=== PATIENT | male | born 1955 | race Caucasian/White ===

== ENCOUNTER 2016-11-11 14:20 | Emergency (ER) | payer MEDICAID, SELFPAY ==
[2016-11-11 14:33] VITALS: BP 125/78; RESP 18; TEMP 98; O2SAT 98
[2016-11-11 14:34] VITALS: PULSE 93
[2016-11-11] MEDS ORDERED: TDAP Vaccine 0.5 mL Syr IM ONE (14:49)
[2016-11-11] MEDS ORDERED: Lidocaine 1% w Epi 1:100,000 Inj IJ STA (15:25)
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
== END 2016-11-11 16:33 | disposition home or self-care (01) ==
LOC: ED 14:20
DX: S81.012A Laceration without foreign body, left knee, initial encounter (principal); W27.8XXA Contact with other nonpowered hand tool, initial encounter; Y93.01 Activity, walking, marching and hiking; Y92.512 Supermarket, store or market as the place of occurrence of the external cause; Z23 Encounter for immunization

== ENCOUNTER 2017-04-12 11:06 | Emergency (ER) | payer MEDICAID ==
[2017-04-12 11:38] VITALS: TEMP 97.4
[2017-04-12 12:13] LABS: BASO # 0.07 K/mm3 (0.0-2.0); BASO % 0.4 % (0.0-3.0); EOS # 0.2 (0.0-0.7); EOS % 0.9 % (1.5-5.0); GRAN # 13.43 (1.4-6.5); GRAN % 75.1 % (50.0-68.0); HEMOGLOBIN 15.7 g/dL (14.0-18.0); LYMPH # 2.9 (1.2-3.4); LYMPH % 16.3 % (22.0-35.0); MEAN CELL VOLUME 88.9 fl (80.0-105.0); MEAN CORPUSCULAR HEMOGLOBIN 30.5 pg (25.0-35.0); MEAN CORPUSCULAR HGB CONC 34.4 g/dl (31.0-37.0); MEAN PLATELET VOLUME 10.2 fl (7.0-11.0); MONO # 1.3 (0.1-0.6); MONO % 7.3 % (1.0-6.0); RBC 5.14 10^6/uL (3.5-6.1); RED CELL DISTRIBUTION WIDTH 13.5 % (11.5-14.5); WHITE BLOOD COUNT 17.9 10^3/ul (4.5-11.0)
[2017-04-12 12:23] LABS: ALB/GLOB RATIO 1.3 (1.1-1.8); ALBUMIN 4.6 g/dL (3.0-4.8); ALT/SGPT 29 U/L (7-56); AST/SGOT 25 U/L (17-59); BLOOD UREA NITROGEN 29 mg/dL (7-21); CALCIUM 10.2 mg/dL (8.4-10.5); GFR AFRICAN-AMERICAN > 60; GFR NON-AFRICAN AMERICAN 56
--- NOTE | 2017-04-12 12:53 | ED PDOC ---
Arrival/HPI - General Chief Complaint: Male Genitourinary Time Seen by Provider: 04/12/17 11:23 Historian: Patient - History of Present Illness Narrative History of Present Illness (Text): 04/12/17 11:32 A 62 year old male, whose past medical history includes emphysema (caused by occupation; on 2 Liters of O2 NC) and gout, presents to the emergency department complaining of left shoulder pain for 3 days. Patient reports having difficulty elevating left arm due to pain. Patient also notes experiencing left testicular pain. Patient has had similar issue in the past when he was in [place]. While there patient was diagnosed with having a virus and was given shots. Has shortness of breath at baseline due to emphysema. Denies of any dysuria, fall, neck pain, or any other complaints at this time. Also, patient mentions drinking 25 glasses of water per day. PMD: Dr. Jonathon Roth Past Medical History - Provider Review Nursing Documentation Reviewed: Yes - Infectious Disease Hx of Infectious Diseases: None - Cardiac Hx Cardiac Disorders: Yes Hx Hypertension: Yes - Pulmonary Hx Respiratory Disorders: Yes Hx Asthma: Yes - Neurological Hx Neurological Disorder: No - HEENT Hx HEENT Disorder: Yes Other/Comment: glasses - Renal Hx Renal Disorder: No - Endocrine/Metabolic Hx Endocrine Disorders: Yes Hx Diabetes Mellitus Type 2: Yes - Hematological/Oncological Hx Blood Disorders: No - Integumentary Hx Dermatological Disorder: No - Musculoskeletal/Rheumatological Hx Musculoskeletal Disorders: Yes Hx Gout: Yes - Gastrointestinal Hx Gastrointestinal Disorders: No - Genitourinary/Gynecological Hx Genitourinary Disorders: No - Psychiatric Hx Psychophysiologic Disorder: No Hx Substance Use: No - Surgical History Other/Comment: kidney sx, as per pt - Anesthesia Hx Anesthesia: Yes Hx Anesthesia Reactions: No Family/Social History - Physician Review Nursing Documentation Reviewed: Yes Family/Social History: No Known Family HX Smoking Status: Current Some Days Smoker Hx Alcohol Use: No Hx Substance Use: No Allergies/Home Meds Allergies/Adverse Reactions: Allergies No Known Allergies Allergy (Verified 04/12/17 11:16) Home Medications: Home Meds Medication Instructions Recorded Confirmed Albuterol HFA [Ventolin HFA 90 2 puff IH PRN PRN 04/12/17 04/12/17 mcg/actuation (8 g)] Allopurinol [Zyloprim] 300 mg PO BID 04/12/17 04/12/17 Alogliptin Benzoate [Alogliptin] 1 cap PO DAILY 04/12/17 04/12/17 Ammonium Lactate 12% [Lac-Hydrin 1 appful TD DAILY 04/12/17 04/12/17 12% Lotion (225 g)] Aspirin [Adult Aspirin Regimen] 1 tab PO DAILY 04/12/17 04/12/17 Atorvastatin [Lipitor] 10 mg PO HS 04/12/17 04/12/17 Butalbital/Aspirin/Caffeine 1 tab PO DAILY 04/12/17 04/12/17 [Copwks-Biuixbh-Tfkcb 50-325-40] Doxazosin [Cardura] 4 mg PO DAILY 04/12/17 04/12/17 Dutasteride [Avodart] 1 tab PO DAILY 04/12/17 04/12/17 Fenofibrate Nanocrystallized 160 mg PO DAILY 04/12/17 04/12/17 [Fenofibrate] Lisinopril [Zestril] 10 mg PO DAILY 04/12/17 04/12/17 M-Vit,Tx,Iron,Mins/Calc/Folic 1 tab PO DAILY 04/12/17 04/12/17 [Thera-M Caplet] Omeprazole [Omeprazole] 40 mg PO DAILY 04/12/17 04/12/17 Temazepam [Restoril] 30 mg PO DAILY 04/12/17 04/12/17 Theophylline Anhydrous [Griffin-24] 1 tab PO DAILY 04/12/17 04/12/17 Tiotropium Anton Inhaler 1 puff IH DAILY 04/12/17 04/12/17 [Spiriva Inhalation Handihaler Device] traMADol [Ultram] 50 mg PO DAILY 04/12/17 04/12/17 Review of Systems - Review of Systems Constitutional: absent: Other (no fall) Eyes: Normal ENT: Normal Respiratory: SOB (baseline due to emphysema (caused by occupation)) Cardiovascular: Normal Gastrointestinal: Normal Genitourinary Male: Other (left testicular pain). absent: Dysuria Musculoskeletal: Other (left shoulder pain with difficulty elevating). absent: Neck Pain Skin: Normal Neurological: Normal Endocrine: Normal Hemo/Lymphatic: Normal Psychiatric: Normal Physical Exam Vital Signs Reviewed: Yes Vital Signs Temp Pulse Resp BP Pulse Ox 04/12/17 15:11 86 18 124/75 95 04/12/17 11:19 97.4 F L 102 H 19 129/88 95 Temperature: Afebrile Blood Pressure: Normal Pulse: Tachycardic Respiratory Rate: Normal Appearance: Positive for: Well-Appearing (well-hydrated) Pain Distress: None Mental Status: Positive for: Alert and Oriented X 3 - Systems Exam Neck: Present: Other (full ROM; non-tender) Respiratory/Chest: Present: Rhonchi (idffused rhonchi in all butler) Cardiovascular: Present: Tachycardic Genitourinary Male: Present: Testicle Tenderness (left side, tenderness to palpation), Testicle Swelling (left). No: Other (no scrotal edema) Upper Extremity: Present: NORMAL PULSES (distal pulses strong), Other (no evidence of injury). No: Normal ROM (difficulty abducting and elevating left arm due to pain) Lower Extremity: Present: Normal Inspection, NORMAL PULSES, Normal ROM. No: Edema Neurological: Present: GCS=15, CN II-XII Intact, Speech Normal. No: Normal Sensory Function (left hand in diffused distribution with full ROM), Other (no neurological deficits) Medical Decision Making ED Course and Treatment: 04/12/17 11:37 Impression: 62 year old male with left shoulder pain and left testicular pain. Plan: -- EKG -- Chest X-ray -- Left Shoulder X-Ray -- Labs -- Toradol -- Urinalysis -- Nasal Cannula O2 -- Reassess and disposition Prior Visits: Notes and results from previous visits were reviewed. Patient was last seen in the emergency department on 11/11/2016 for left knee laceration. Patient was discharged home. Progress Notes: 04/12/17 15:09 Chest pain has improved. Patient will be started on antibiotics and antiinflammatories. Currently stable for disposition. - Lab Interpretations Lab Results: 04/12/17 12:00 04/12/17 12:00 Lab Results 04/12/17 14:20: Urine Color Yellow, Urine Appearance Cloudy, Urine pH 6.0, Ur Specific [place] 1.010, Urine Protein Negative, Urine Glucose (UA) Negative, Urine Ketones Negative, Urine Blood Small H, Urine Nitrate Positive H, Urine Bilirubin Negative, Urine Urobilinogen 0.2, Ur Leukocyte Esterase Small H, Urine RBC 1 - 3, Urine WBC 5 - 10, Ur Epithelial Cells 1 - 3, Urine Bacteria Many 04/12/17 12:00: Sodium 136, Potassium 4.4, Chloride 101, Carbon Dioxide 24, Anion Gap 15, BUN 29 H, Creatinine 1.3, Est GFR ( Amer) > 60, Est GFR ( Non-Af Amer) 56, Random Glucose 100, Calcium 10.2, Total Bilirubin 0.5, AST 25, ALT 29, Alkaline Phosphatase 35 L, Total Protein 8.0, Albumin 4.6, Globulin 3.4 , Albumin/Globulin Ratio 1.3 04/12/17 12:00: WBC 17.9 H, RBC 5.14, Hgb 15.7, Hct 45.7, MCV 88.9, MCH 30.5, MCHC 34.4, RDW 13.5, Plt Count 233, MPV 10.2, Gran % 75.1 H, Lymph % (Auto) 16.3 L, Ford % (Auto) 7.3 H, Eos % (Auto) 0.9 L, Baso % (Auto) 0.4, Gran # 13.43 H, Lymph # 2.9, Ford # 1.3 H, Eos # 0.2, Baso # 0.07 I have reviewed the lab results: Yes - RAD Interpretation Radiology Orders: 04/12/17 11:57 CHEST ONE VIEW [RAD] Stat SHOULDER LEFT [RAD] Stat - Medication Orders Current Medication Orders: Ceftriaxone Sodium (Rocephin 1 Gram Ivpb) 1 gm in 100 mls @ 200 mls/hr IVPB STAT STA PRN Reason: Protocol Stop: 04/12/17 15:27 Discontinued Medications Ketorolac Tromethamine (Toradol) 30 mg IVP STAT STA Stop: 04/12/17 12:01 Last Admin: 04/12/17 12:15 Dose: 30 mg MAR Pain Assessment Document 04/12/17 12:15 HI (Rec: 04/12/17 12:16 [id number] Pain Reassessment Is this a pain reassessment? No Presence of Pain Presence of Pain Yes Location Left, Right or Bilateral Left Pain Location Body Site Shoulder Description Description Constant IVP Administration Document 04/12/17 12:15 HI (Rec: 04/12/17 12:16 [place] [id number]) Charges for Administration # of IVP Administrations 1 - Scribe Statement The provider has reviewed the documentation as recorded by the Scribe Michael Solis Provider Scribe Attestation: All medical record entries made by the Scribe were at my direction and personally dictated by me. I have reviewed the chart and agree that the record accurately reflects my personal performance of the history, physical exam, medical decision making, and the department course for this patient. I have also personally directed, reviewed, and agree with the discharge instructions and disposition. Disposition/Present on Arrival - Present on Arrival Any Indicators Present on Arrival: No History of DVT/PE: No History of Uncontrolled Diabetes: No Urinary Catheter: No History of Decub. Ulcer: No History Surgical Site Infection Following: None - Disposition Have Diagnosis and Disposition been Completed?: Yes Diagnosis: Bursitis, UTI (urinary tract infection) Disposition: HOME/ ROUTINE Disposition Time: 15:15 Patient Plan: Discharge Patient Problems: Current Active Problems Problem Status Onset Bursitis Acute UTI (urinary tract infection) Acute Condition: STABLE Prescriptions: Meloxicam [Mobic] 7.5 mg PO BID PRN #14 tab PRN Reason: Pain, Mild (1-3) Sulfamethoxazole/Trimethoprim [Bactrim DS 800 mg-160 mg] 1 tab PO BID #14 tab Referrals: Jonathon Whaley MD [Primary Care Provider] - Follow up with primary Forms: [employer] (Cuban)
[2017-04-12 14:41] LABS: URINE BILIRUBIN NEGATIVE (NEGATIVE); URINE BLOOD SMALL (NEGATIVE); URINE GLUCOSE (UA) NEGATIVE (NEGATIVE); URINE LEUKOCYTE ESTERASE SMALL Leu/uL (NEGATIVE); URINE NITRATE POSITIVE (NEGATIVE); URINE PROTEIN NEGATIVE mg/dL (<30 mg/dL); URINE UROBILINOGEN 0.2 E.U./dL (<1 E.U./dL)
[2017-04-12 14:42] LABS: URINE APPEARANCE CLOUDY (CLEAR); URINE COLOR YELLOW (YELLOW)
[2017-04-12 14:50] LABS: URINE BACTERIA MANY (NEG)
[2017-04-12] MEDS ORDERED: cefTRIAXone 1 gm 1 GM/100 ML BAG IVPB STA (14:58)
--- NOTE | 2017-04-12 15:25 | RAD ---
PROCEDURE: CHEST RADIOGRAPH, 1 VIEW HISTORY: shortness of breath COMPARISON: None available. FINDINGS: LUNGS: Clear. PLEURA: No pneumothorax or pleural fluid seen. CARDIOVASCULAR: Normal. OSSEOUS STRUCTURES: No significant abnormalities. VISUALIZED UPPER ABDOMEN: Normal. OTHER FINDINGS: None. IMPRESSION: No active disease.
--- NOTE | 2017-04-12 15:27 | RAD ---
PROCEDURE: Radiographs of the Left Shoulder HISTORY: pain COMPARISON: No prior. FINDINGS: BONES: Normal. No fracture. JOINTS: Normal. Glenohumeral and acromioclavicular joints preserved. No osteoarthritis. SOFT TISSUES: Normal. OTHER FINDINGS: None. IMPRESSION: Normal radiographs of the left shoulder.
--- NOTE | 2017-04-12 15:36 | CARD ---
APPROVED REPORT EKG Measurement Heart [id number] <Conclusion> Sinus tachycardia Possible Left atrial enlargement Right bundle branch block Left anterior fascicular block Bifascicular block Cannot rule out Inferior infarct (masked by fascicular block?), age undetermined Abnormal ECG
[2017-04-12 16:13] VITALS: BP 125/87; PULSE 82; RESP 16; O2SAT 97
== END 2017-04-12 16:14 | disposition home or self-care (01) ==
LOC: ED 11:06
DX: M75.52 Bursitis of left shoulder (principal); N39.0 Urinary tract infection, site not specified; I10 Essential (primary) hypertension; E11.9 Type 2 diabetes mellitus without complications; F17.210 Nicotine dependence, cigarettes, uncomplicated
CPT/HCPCS: 71045; 73030; 80053; 81001; 85025; 87086; 93005; 96374; 99284; J0696; J1885